=== PATIENT | female | born 1950 | race Caucasian/White ===

== ENCOUNTER → 2023-01-27 | Outpatient (CLI) | payer MEDICARE, BC ==
[~2023-01-27] MED LIST: Aspirin PO; EZET10TA13 PO; FERR324T10 PO; HYDR-2132 PO; IOHEXOL-350 75 ML VIAL IV ONE; LEVO137T2 PO; LOSA100T59 PO; PRAV20TA4 PO; ZOLP10TA6 PO
== END | disposition home or self-care (01) ==
LOC: RAH 10:09
PROVIDERS: ATTEND Family Medicine
DX: Q27.8 Other specified congenital malformations of peripheral vascular system (principal); R22.1 Localized swelling, mass and lump, neck
CPT/HCPCS: 70492; Q9967

== ENCOUNTER → 2024-09-10 | Outpatient (CLI) | payer MEDICARE, BC ==
[~2024-09-10] MED LIST changes: -EZET10TA13 PO; +EZET10TA81 PO; -IOHEXOL-350 75 ML VIAL IV ONE
--- NOTE | 2024-09-10 14:33 | HMCIMG ---
US VENOUS DOPPLER UNILATERAL HISTORY: Right leg pain COMPARISON: None TECHNIQUE: Right lower extremity venous Doppler ultrasound study was performed. FINDINGS: The right common femoral, femoral, popliteal, and posterior tibial veins are visualized. Normal flow with augmentation and compressibilities are demonstrated. Right greater saphenous vein is patent IMPRESSION: 1. No evidence of deep venous thrombosis is seen.
--- NOTE | 2024-09-10 15:03 | HMCIMG ---
KNEE 3VWS RT HISTORY: Right knee pain COMPARISON: None TECHNIQUE: 3 images of right knee were obtained. FINDINGS: Medial femorotibial joint space narrowing is seen. There is no acute displaced fracture or dislocation. Degenerative changes are seen. IMPRESSION: 1. Findings as described above.
== END | disposition home or self-care (01) ==
LOC: RAH 13:34
PROVIDERS: ATTEND Family Medicine
DX: M17.11 Unilateral primary osteoarthritis, right knee (principal); M25.861 Other specified joint disorders, right knee; M25.561 Pain in right knee; M79.604 Pain in right leg
CPT/HCPCS: 73562; 93971